=== PATIENT | female | born 2000 ===

== ENCOUNTER 2024-05-31 01:56 | Outpatient (CLI) | payer OTHER, SELFPAY ==
--- NOTE | 2024-05-31 10:34 | DI.RAD_ITS ---
Exam(s) XR KNEE RT 4V AP,LAT,IRENE,PAT EXAM: XR KNEE RT 4V AP,LAT,IRENE,PAT CLINICAL HISTORY: RT KNEE PAIN, M25.561. TECHNIQUE: 2D digital imaging was performed. COMPARISON: No exams were available for comparison FINDINGS: Four views No evidence of fracture but there does appear to be small joint effusion. No joint space narrowing. No osteochondral defects. Bone density normal. No osseous lesions. Patella and patellofemoral com partment appear unremarkable. IMPRESSION: No acute osseous findings in the knee but there does appear to be a small joint effusion which may si gnify internal derangement. If clinically indicated MRI can be performed DATA REPOSITORY: RADIATION DOSE DELIVERED:
== END 2024-05-31 02:16 ==
PROVIDERS: Visit Provider Student in an Organized Health Care Education/Training Program
DX: M25.561 Pain in right knee (principal)
CPT/HCPCS: 73564

== ENCOUNTER 2024-11-10 16:50 | Outpatient (REF) | payer OTHER, SELFPAY ==
--- NOTE | 2024-11-10 15:05 | PAPFT_PTH ---
PATIENT: Rose Mary Sarmiento LOC: [facility] U#:[id number] AGE/SX: 24/F ROOM: RE11/10/[address]: Sergey Bruce : 2000 BED: DIS: 11/10/2024 SPEC #: [id number] RECD: 11/10/24 17:49 STATUS: BARBARA REGabi #: [id number] BHAVYA: 11/10/24 15:[address]: Sergey Bruce DEPT: [facility] Cytology RECD BY: Kavita Baugh Tissues: 1 - CX/ENDOCX FOR PAP SMEARS Procedures: PAP THIN PREP/[facility] Screening HPV DNA PROBE Comments: [id number] (HPV 16 & 18/45)
== END 2024-11-10 16:51 | disposition home or self-care (01) ==
LOC: NCHCN 16:50
PROVIDERS: PCP Student in an Organized Health Care Education/Training Program; Visit Provider Student in an Organized Health Care Education/Training Program
DX: Z11.51 Encounter for screening for human papillomavirus (HPV) (principal); Z01.419 Encounter for gynecological examination (general) (routine) without abnormal findings
CPT/HCPCS: 88142; 87624

== ENCOUNTER 2025-03-27 02:21 | Outpatient (CLI) | payer OTHER, SELFPAY ==
--- NOTE | 2025-03-27 13:30 | DI.MRI_ITS ---
Exam(s) MR LOWER JOINT LT WO EXAM: MR LOWER JOINT LT WO CLINICAL HISTORY: Acute pain of lt knee,M25.562,path of adductor tendons/MCL/medial jt line. TECHNIQUE: Multiplanar multisequence MRI was performed. COMPARISON: There are no priors for comparison. FINDINGS: BONES: There is no fracture or contusion pattern. JOINTS: Articular cartilage is unremarkable. No effusion is present. TENDONS: Extensor mechanism: Unremarkable. Medial retinaculum: Unremarkable. Lateral retinaculum: Unremarkable. Popliteus: Unremarkable. MUSCLES: Unremarkable. MENISCI: The medial meniscus is unremarkable. The lateral meniscus is unremarkable. SOFT TISSUES: Unremarkable. LIGAMENTS: Anterior Cruciate: Unremarkable. Posterior Cruciate: Unremarkable. Medial Collateral:There is mild thickening of the medial collateral ligament. There is also mild hyperintense signal seen around the medial collateral ligament consistent with a sprain. Lateral Collateral: Unremarkable. OTHER: IMPRESSION: 1. MCL sprain. 2. No evidence of a ligament or meniscal tear. 3. No evidence of a contusion or fracture. DATA REPOSITORY:
== END 2025-03-27 02:41 ==
PROVIDERS: PCP Student in an Organized Health Care Education/Training Program; Visit Provider Student in an Organized Health Care Education/Training Program
DX: M25.562 Pain in left knee (principal); S83.412A Sprain of medial collateral ligament of left knee, initial encounter; X58.XXXD Exposure to other specified factors, subsequent encounter
CPT/HCPCS: 73721

== ENCOUNTER → 2025-04-10 14:43 | Outpatient (BNVA) | payer OTHER, SELFPAY | PROVIDERS: PCP Student in an Organized Health Care Education/Training Program; Referring Provider Student in an Organized Health Care Education/Training Program; Visit Provider Student in an Organized Health Care Education/Training Program | DX: S83.412A Sprain of medial collateral ligament of left knee, initial encounter (principal); X50.0XXA Overexertion from strenuous movement or load, initial encounter; Y93.89 Activity, other specified | CPT/HCPCS: 99203 ==